=== PATIENT | female | born 1965 | race Caucasian/White ===

== ENCOUNTER 2022-12-31 15:55 | Emergency (ER) | payer MEDICAID ==
[~2022-12-31] VITALS: Ht 167.6 cm; Wt 85.9 kg
[2022-12-31 16:32] VITALS: BP 113/77
--- NOTE | 2022-12-31 17:54 | NUR ---
PT WAITING TO HAVE SPLINT APPLIED.
== END 2022-12-31 20:08 | disposition home or self-care (01) ==
LOC: ER 15:56
DX: Z46.89 Encounter for fitting and adjustment of other specified devices (principal); Z88.8 Allergy status to other drugs, medicaments and biological substances
CPT/HCPCS: 29515; 99284; A6222; A6258; A6446; A6449

== ENCOUNTER 2023-01-01 15:50 | Emergency (ER) | payer MEDICAID ==
[~2023-01-01] VITALS: Ht 167.6 cm; Wt 85.9 kg
--- NOTE | 2023-01-01 16:32 | NUR ---
[facility] WAS CALLED TO VERIFY THE TYPE OF SPLINT THEY ARE REQUESTING TO BE PLACED ON THE PT'S RT LEG. [facility] GRUBER, SANCHO; STATED THAT PT NEEDS A LONG LEG; MID THIGH, FIBERGLASS SPLINT. SHIFT COORDINATOR WAS NOTIFIED
[2023-01-01 17:31] VITALS: BP 120/80
== END 2023-01-01 17:33 ==
LOC: ER 15:51
DX: S81.801A Unspecified open wound, right lower leg, initial encounter (principal); X58.XXXA Exposure to other specified factors, initial encounter; Y93.89 Activity, other specified; Y92.89 Other specified places as the place of occurrence of the external cause; Y99.8 Other external cause status
CPT/HCPCS: 29505; 99283; A6449